=== PATIENT | male | born 1955 | race Caucasian/White ===

== ENCOUNTER 2018-01-21 16:18 | Observation (INO) | payer OTHER ==
[~2018-01-21] VITALS: Ht 195.6 cm; Wt 156.3 kg
[~2018-01-21 16:18] MED LIST: ACTOS PO; COLESEVELAM; FENOFIBRATE; FUROSEMIDE20 MG PO; GLIPIZIDE10 MG PO; LOFIBRA160 MG PO; LOSARTAN POTAS100 MG PO; METFORMIN; METFORMIN HCL1000 MG PO; PIOGLITAZONE HC45 MG PO; VALSARTAN; WELCHOL625 MG PO
--- NOTE | 2018-01-21 18:19 | Diagnostic Imaging Report ---
EXAMINATION: PA and lateral views of the chest. COMPARISON: None CLINICAL HISTORY: Chest pain DISCUSSION: Lines/tubes: None. Lungs: Lingular atelectasis. Central venous congestion. Pleura: There is no pleural effusion or pneumothorax. Heart and mediastinum: Mild cardiomegaly and prominence of the mediastinum. Bones and soft tissues: No acute bony abnormalities. IMPRESSION: Mild cardiomegaly and prominence of the mediastinum. Lingular atelectasis. Signed by: Dr. Martell Pop M.D. on 01/21/2018 6:15 PM
[2018-01-21 20:25] LABS: BASOPHILS % 0.4 % (0.0-1.0); EOSINOPHILS # (AUTO) 0.1 (0.0-0.4); HEMATOCRIT 39.2 % (38.2-49.6); HEMOGLOBIN 13.2 g/dL (14.0-18.0); LYMPHOCYTES # (AUTO) 1.6 (1.0-3.2); LYMPHOCYTES % 17.1 % (18.0-39.1); MEAN CORPUSCULAR HEMOGLOBIN 31.8 pg (28-32); MEAN CORPUSCULAR HGB CONC 33.7 g/dL (31-35); MEAN CORPUSCULAR VOLUME 94.5 fL (81-99); MONOCYTES # (AUTO) 0.8 (0.2-0.8); MONOCYTES % 8.3 % (4.4-11.3); NEUTROPHILS # (AUTO) 6.9 (2.1-6.9); NEUTROPHILS % 72.6 % (38.7-80.0); PLATELET COUNT 192 x10e3/uL (140-360); RED BLOOD COUNT 4.15 x10e6/uL (4.3-5.7); RED CELL DISTRIBUTION WIDTH 13.5 % (11.7-14.4)
[2018-01-21 20:39] LABS: INR 1.16; PARTIAL THROMBOPLASTIN TIME 26.2 seconds (23.8-35.5); PROTHROMBIN TIME 13.9 seconds (11.9-14.5)
[2018-01-21 20:46] LABS: ALBUMIN 3.8 g/dL (3.5-5.0); ALBUMIN/GLOBULIN RATIO 1.2 (0.8-2.0); ANION GAP 12.9 mmol/L (8-16); CALCIUM 9.5 mg/dL (8.4-10.2); CREATININE, SERUM 1.21 mg/dL (0.72-1.25); POTASSIUM 3.9 mmol/L (3.5-5.1)
[2018-01-21 20:52] LABS: CREATINE KINASE MB 4.2 ng/mL (0-5.0)
[2018-01-21 21:15] LABS: BILIRUBIN,URINE NEGATIVE (NEGATIVE); CLARITY,URINE CLEAR (CLEAR); COLOR,URINE YELLOW (YELLOW); KETONES,URINE NEGATIVE (NEGATIVE); LEUKOCYTE ESTERASE ,URINE NEGATIVE (NEGATIVE); NITRITE,URINE NEGATIVE (NEGATIVE); PROTEIN,URINE DIPSTICK NEGATIVE (NEGATIVE); URINE UROBILINOGEN 0.2 mg/dL (0.2 - 1)
[2018-01-21 21:30] LABS: EPITHELIAL CELLS,URINE FEW /LPF; MUCUS,URINE FEW (RARE)
[2018-01-21] MEDS ORDERED: ONDANSETRON HCL INJ 2 MG/ML VIAL IV PRN (22:00)
[2018-01-21] MEDS ORDERED: DEXTROSE 50% SYRINGE 50 ML IV PRN (22:00)
[2018-01-21] MEDS ORDERED: SODIUM CHLORIDE FLUSH 10 ML SYR INJ PRN (22:00)
[2018-01-21] MEDS ORDERED: MORPHINE SULFATE 2 MG/ML SYR IV PRN (22:00)
[2018-01-21] MEDS: FAMOTIDINE 20 MG/2 ML VIAL IV SCH (22:30)
[2018-01-22 03:55] LABS: CHOL/HDL RATIO 3.8 (3.9-4.7)
[2018-01-22 04:06] LABS: CREATINE KINASE MB 2.9 ng/mL (0-5.0)
[2018-01-22] MEDS: INSULIN REGULAR, HUMAN 100 UNIT/1 ML 3ML VIAL SQ SCH ×4 (08:00→21:00)
[2018-01-22] MEDS: ASPIRIN 81 MG ENTERIC COATED PO SCH (09:35)
[2018-01-22 10:32] LABS: AMYLASE 44 U/L (25-125); LIPASE 38 U/L (8-78)
[2018-01-22] MEDS: FAMOTIDINE 20 MG/2 ML VIAL IV SCH ×2 (10:50→21:23)
[2018-01-22 10:56] VITALS: BP 144/70
[2018-01-22 11:14] VITALS: BP 144/70
--- NOTE | 2018-01-22 11:20 | History and Physical ---
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 This patient has no previous history of indigestion and no previous chest pains. He does however have right bundle branch block and left anterior hemiblock. In the past, he was thought to have possible sleep apnea because he is obese. He drives the truck. 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 Finally at 2 p.m., he got off work, bought the above-mentioned food and ate it. Two hours later, he developed indigestional chest pain in the lower sternal region. He came to the emergency room. EKG still showed right bundle branch block and left anterior hemiblock. Chest x-ray showed possible cardiomegaly. He is being admitted for further evaluation and treatment. CT scan not done. PAST MEDICAL HISTORY: Remarkable for diabetes and hyperlipidemia. MEDICATIONS: Include 1. Losartan 100 mg p.o. q.d. 2. Welchol 625 mg 3 tablets p.o. b.i.d. 3. Metformin 500 mg p.o. b.i.d. 4. Glipizide 10 mg p.o. q.d. 5. Pioglitazone 45 mg p.o. q.d. 6. Lasix 20 mg p.o. q.d. 7. Fenofibrate 160 mg p.o. q.d. 8. Lisinopril 5 mg q.d. 9. Amlodipine 10 mg p.o. q.d. for his history of hypertension. PAST SURGICAL HISTORY: Included tonsillectomy, back surgery, age 24, causing him not to be able to walk on an incline, history of arthroscopic left knee surgery x2. FAMILY HISTORY: Father from pneumonia, had a pacemaker and myocardial fraction age 65. Mother had congestive heart failure and diabetes. Brother had congestive heart failure with bypass surgery. PERSONAL AND SOCIAL HISTORY: He is a cigarette smoker. ALLERGIES: NONE KNOWN. REVIEW OF SYSTEMS: Noncontributory. He does have slightly elevated creatinine at 1.3 in the past. PHYSICAL EXAMINATION GENERAL: He is obese, alert, and coherent. VITAL SIGNS: Stable. CARDIAC: Jugular veins are not distended. S1 and S2 are regular. There is no appreciable murmur. LUNGS: Clear. ABDOMEN: Soft. Bowel sounds are present. EXTREMITIES: Show no cyanosis, clubbing or edema. LABORATORY STUDIES: Electrolytes showed sodium 134, potassium 3.9, BUN 14, and creatinine 1.2. GFR 60. White count 9400, hemoglobin is 13.2, and platelet count 191,000. INR is 1.16. Chest x-ray as mentioned. INR was normal. IMPRESSION 1. Atypical lower chest and upper abdominal pains. Consider GI pathology as well as coronary artery disease. 2. Right bundle branch block and left anterior hemiblock, chronic. 3. History of dilated aortic root measuring 4.2 cm. 4. Hypertension. 5. Diabetes. 6. Hyperlipidemia. 7. Possible sleep apnea. 8. Family history of coronary artery disease. 9. Cigarette smoking. 10. Chronic kidney disease stage 2. Creatinine 1.2. GFR 60. RECOMMENDATIONS: CT scan of the chest with contrast. Intravenous fluids to prevent deterioration of renal function. Lexiscan nuclear stress test since the patient feel he cannot walk on an incline even though he does walk 2 miles per day at home without chest pains. CT of the abdomen and consider ultrasound of gallbladder. Thank you very much. Job#: [id number] DEMI cc:DR. PADMA HUBBARD
[2018-01-22 11:24] VITALS: BP 132/74
[2018-01-22] MEDS: SODIUM CHLORIDE 0.9% 1000ML 1,000 ML IV SCH (11:44)
[2018-01-22 12:25] LABS: CREATINE KINASE MB 2.5 ng/mL (0-5.0)
[2018-01-22 15:09] VITALS: BP 124/56
[2018-01-22] MEDS ORDERED: SODIUM CHLORIDE 0.9% 50ML 50 ML ONE (15:31)
[2018-01-22] MEDS ORDERED: IOPAMIDOL 370 MG/ML 200 ML INFUS..BTL INJ ONE (15:32)
[2018-01-22] MEDS: COLESEVELAM HCL 625 MG TAB PO SCH (16:42)
--- NOTE | 2018-01-22 16:49 | Diagnostic Imaging Report ---
EXAMINATION: CT scan of the chest with contrast. TECHNIQUE: Spiral CT images of the chest were performed from the lung apices to the level of the adrenal glands after the intravenous administration of 100 cc of Isovue 370. Coronal and sagittal reformatted images were obtained. COMPARISON: None. CLINICAL HISTORY:Chest pain, history of aneurysm DISCUSSION: LINES/TUBES: None. LUNGS AND AIRWAYS: Linear atelectasis in the lingula secondary to eventration of the left hemidiaphragm. No consolidation or masses. The airways are clear, without endobronchial lesions. PLEURA: No pneumothorax or pleural effusions. HEART AND MEDIASTINUM: The thyroid gland is normal. Heart size is normal. No pericardial effusion. Aorta is nonaneurysmal. Pulmonary artery is normal in caliber. LYMPH NODES: There is no mediastinal, hilar or axillary lymphadenopathy. ABDOMEN: Please see CT abdomen and pelvis performed on same day for further detail. BONES AND SOFT TISSUES: No acute bony abnormalities. IMPRESSION: 1. Focal atelectasis in the lingula secondary to eventration of the left hemidiaphragm. No consolidation. 2. No aneurysm is identified. Signed by: Dr. Igor Cotto M.D. on 01/22/2018 4:46 PM
--- NOTE | 2018-01-22 16:58 | Diagnostic Imaging Report ---
EXAMINATION: CT of the abdomen with contrast. TECHNIQUE: Spiral CT images of the abdomen were performed from the lung bases to the iliac crests after the intravenous administration of 100 cc of Isovue 370 and the oral administration of water. Coronal and sagittal reformatted images were obtained. COMPARISON: None. CLINICAL HISTORY:Abdominal pain DISCUSSION: ABDOMEN LOWER THORAX:Please see chest CT performed same date for further patella. HEPATOBILIARY: No focal hepatic lesions. No intra or extrahepatic biliary ductal dilation. GALLBLADDER: 2 mm stone in the gallbladder neck (series 2, image 60). 2 mm calcification in the nondependent portion of the gallbladder fundus, which may represent an adherent stone. No wall thickening or pericholecystic fluid. SPLEEN: No splenomegaly. PANCREAS: No focal masses or ductal dilatation. ADRENALS: No adrenal nodules. KIDNEYS/URETERS: 2 mm nonobstructing calculus in the right superior pole (series 2, image 66). 2-3 mm nonobstructing calculus in the superior to mid right kidney (series 2, image 67) disease. 4 mm nonobstructing calculus in the right interpolar region (series 2, image 70). 2-3 mm nonobstructing calculus in the right interpolar region (series 2, image 74). Punctate nonobstructing calculus in the right inferior pole (series 2, image 78). Punctate nonobstructing calculus in the left interpolar region (series 2, image 74). No ureteral calculi, hydronephrosis or obstruction. 2.9 cm and 2.7 cm simple cysts in the interpolar left kidney (series 2, image 74). 3.2 cm exophytic simple cyst in the left inferior pole (series 2, image 83). 2.0 cm simple cyst in the right interpolar region (series 2, and 74). Bilateral subcentimeter hypodense lesions, which are too small to characterize. No solid enhancing masses. PERITONEUM/RETROPERITONEUM: No free air or fluid. LYMPH NODES: No intra-abdominal or retroperitoneal adenopathy. VESSELS: The celiac trunk,superior and inferior mesenteric and bilateral renal arteries are patent The portal, superior mesenteric and splenic veins are patent. Aorta is nonaneurysmal. GI TRACT: Visualized bowel shows no dilation or obstruction. BONES AND SOFT TISSUE: Multilevel degenerative disc changes in the lower thoracic and lumbar spine. No aggressive lytic lesions. No soft tissue abnormalities. IMPRESSION: 1. No acute abdominal or pelvic abnormalities. 2. No evidence of aortic aneurysm 3. Bilateral nonobstructing calculi, as described. No hydronephrosis. 4. Bilateral simple appearing renal cysts. 5. Cholelithiasis, without CT evidence of cholecystitis. Signed by: Dr. Igor Cotto M.D. on 01/22/2018 4:55 PM
--- NOTE | 2018-01-22 17:03 | Diagnostic Imaging Report ---
EXAM: Right Upper Quadrant Ultrasound INDICATION: \S\indigestion post meal COMPARISON: None. TECHNIQUE: Transverse and longitudinal images of the right upper abdomen were obtained. FINDINGS: Exam limited by patient's large body habitus. Liver: Size: 19.4 cm in the right midclavicular line, enlarged Appearance: Increased echogenicity, smooth contour Mass: No focal masses Gallbladder: Stones/Sludge: 2 echogenic foci measuring 0.7 x 0.5 x 0.8 cm and 1.0 x 0.7 x 0.8 cm are noted in the gallbladder wall, with minimal shadowing (these correspond to calcified foci in recent CT) Wall: 0.4 cm Appearance: No pericholecystic fluid or hydrops. Sonographic Huffman's Sign: Negative Bile Ducts: Intrahepatic Ducts: No dilatation Extrahepatic Ducts: Common bile duct measures 0.8 cm, mild dilation Pancreas: Obscured by overlying bowel gas. Kidneys: Length: Right 14.9 cm Echogenicity: Normal Collecting System: No hydronephrosis Stone: None Cyst/Mass: None Vessels: Aorta: Visualized portions are normal Inferior Vena Cava: Visualized portions are normal Main Portal Vein: 1.7 cm, normal size with hepatopedal flow. Free Fluid: No ascites or pleural effusion IMPRESSION: 1. Echogenic foci in the gallbladder wall may represent adherent stones, and less likely calcified polyps. No sonographic evidence of acute cholecystitis. 2. Mild dilation of the common bile duct, without intraluminal filling defects. 3. Hepatomegaly with diffuse fatty infiltration. No focal lesions. 4. Main portal vein is dilated. Although this may be seen with portal hypertension, the patient does not have cirrhotic features. The staff physician below has personally reviewed this exam on the date of dictation. Signed by: Dr. Igor Cotto M.D. on 01/22/2018 5:00 PM
[2018-01-22 20:15] VITALS: BP 137/83
[2018-01-22 21:05] LABS: CREATINE KINASE MB 2.6 ng/mL (0-5.0)
[2018-01-22 21:26] VITALS: BP 137/83
[2018-01-23 01:15] VITALS: BP 119/58
[2018-01-23 04:50] VITALS: BP 125/60
[2018-01-23 05:32] LABS: ALANINE AMINOTRANSFERASE 23 IU/L (0-55); ALBUMIN 3.7 g/dL (3.5-5.0); ALBUMIN/GLOBULIN RATIO 1.2 (0.8-2.0); ALKALINE PHOSPHATASE 43 IU/L (40-150); ANION GAP 14.1 mmol/L (8-16); BLOOD UREA NITROGEN 16 mg/dL (7-26); BUN/CREATININE RATIO 14 (6-25); CALCIUM 9.9 mg/dL (8.4-10.2); CARBON DIOXIDE 22 mmol/L (22-29); CHLORIDE 106 mmol/L (98-107); CREATININE, SERUM 1.17 mg/dL (0.72-1.25); EST GLOMERULAR FILTRATION RATE > 60 ML/MIN (60-); GLUCOSE 146 mg/dL (74-118); POTASSIUM 4.1 mmol/L (3.5-5.1); SODIUM 138 mmol/L (136-145)
[2018-01-23] MEDS: SODIUM CHLORIDE 0.9% 1000ML 1,000 ML IV SCH (06:11)
[2018-01-23] MEDS: INSULIN REGULAR, HUMAN 100 UNIT/1 ML 3ML VIAL SQ SCH (07:30)
[2018-01-23] MEDS ORDERED: GLIPIZIDE 5 MG TAB PO SCH (07:30)
[2018-01-23 08:00] VITALS: BP 129/69
[2018-01-23] MEDS ORDERED: METFORMIN HCL 500 MG TAB CR PO SCH (08:00)
[2018-01-23] MEDS ORDERED: REGADENOSON 0.4 MG/5 ML SYR IV ONE (08:40)
[2018-01-23] MEDS ORDERED: LOSARTAN POTASSIUM 100 MG TAB PO SCH (09:00)
[2018-01-23] MEDS ORDERED: FUROSEMIDE 20 MG TAB PO SCH (09:00)
[2018-01-23] MEDS ORDERED: NON-FORMULARY MEDICATION (Glipizide 10 MG) PO SCH (09:00)
[2018-01-23] MEDS ORDERED: AMLODIPINE BESYLATE 10 MG TAB PO SCH (09:00)
[2018-01-23] MEDS ORDERED: FENOFIBRATE 160 MG PO SCH (09:00)
[2018-01-23] MEDS ORDERED: PIOGLITAZONE HCL 45 MG TAB PO SCH (09:00)
[2018-01-23] MEDS ORDERED: NON-FORMULARY MEDICATION (Metformin Hcl 1,000 MG) PO SCH (09:00)
[2018-01-23] MEDS ORDERED: FENOFIBRATE 145 MG TAB PO SCH (09:00)
[2018-01-23 10:01] VITALS: BP 129/69
[2018-01-23] MEDS ORDERED: ASPIRIN EC81 MG PO (10:37)
[2018-01-23] MEDS ORDERED: NORVASC10 MG PO (10:37)
[2018-01-23] MEDS: COLESEVELAM HCL 625 MG TAB PO SCH (11:25)
[2018-01-23] MEDS: ASPIRIN 81 MG ENTERIC COATED PO SCH (11:25)
[2018-01-23] MEDS: FAMOTIDINE 20 MG/2 ML VIAL IV SCH (11:26)
[2018-01-23] MEDS ORDERED: ISOSORBIDE MONO30 MG PO (11:37)
[2018-01-23 12:00] VITALS: BP 151/69
--- NOTE | 2018-01-23 12:55 | Cardiology Report ---
DATE OF STUDY: January 23, 2018 LEXISCAN NUCLEAR STRESS TEST CLINICAL HISTORY AND INDICATIONS: A 62-year-old white man with multiple risk factors including smoking, family history, diabetes, hypertension, hyperlipidemia, obesity. His EKG showed right bundle-branch block and left anterior hemiblock. He has back pains and cannot walk on a treadmill. Lexiscan nuclear stress was therefore recommended. PROCEDURE: Following Lexiscan injection, the patient did not have any chest pain but he had slight throat discomfort. Perfusion images showed large inferior defect with slight improvement on the rest images. EKG still shows right bundle-branch block. CONCLUSIONS 1. Abnormal electrocardiographic stress test with large inferior defect somewhat improved on the rest images suggestive of ischemia and possible underlying myocardial scar. 2. Tissue attenuation is possible but felt to be less likely. 3. Inconclusive electrocardiographic stress test due to right bundle-branch block. 4. No chest pains, but the patient had slight throat discomfort with the Lexiscan. 5. Slight fall in blood pressure with Lexiscan. 6. No significant arrhythmias with Lexiscan. RECOMMENDATION: Cardiac catheterization. Job#: [id number] cc:PADMA HUBBARD DO
--- NOTE | 2018-01-23 14:15 | Discharge Summary ---
CLINICAL HISTORY: This is a 62-year-old white man with history of dilated aortic root by echocardiogram in November 2016 measuring 4.2 cm. He presented to the emergency room with lower sternal chest pains lasting for 2 hours after eating 2 egg rolls and drinking 12 ounces of cranberry juice. He has several risk factors of coronary artery disease including hypertension, hyperlipidemia, diabetes, obesity, family history. He is a cigarette smoker as well. His enzymes were negative. He underwent a nuclear stress test which was abnormal showing a large inferior defect with some improvement at rest. Since he is a large individual, there is still possibility of falsely abnormal stress test. He has baseline right bundle-branch block and left anterior hemiblock. CT scan of the chest was unrevealing for aneurysm. The CT of the abdomen showed cholelithiasis and nephrolithiasis without evidence of obstruction or cholecystitis. Bile ducts are a little bit enlarged, so is the portal vein. However, there is no evidence of cirrhosis by CT scan. We recommended cardiac catheterization. The patient was reluctant and wanted to go home since the grandson who was named after him has a baseball game. Risk of having a myocardial infarction was explained and understood. DISCHARGE DIAGNOSES 1. Atypical lower chest pains and upper abdominal pains possibly representing unstable angina pectoris with nuclear stress as abnormal showing a large inferior defect with slight improvement at rest. The patient has multiple risk factors. 2. Cigarette smoking. 3. Right bundle-branch block and left anterior hemiblock. 4. Diabetes. 5. Hypertension. 6. Hyperlipidemia. 7. Obesity. 8. Possible obstructive sleep apnea. 9. Family history of coronary artery disease. 10. Chronic kidney disease, stage 2. Creatinine in the past was up to 1.3. During this hospitalization, it was only 1.17 with GFR greater than 60. LISA BURKETT MD Job#: [id number] cc:PADMA HUBBARD DO
== END 2018-01-23 12:15 | disposition home or self-care (01) ==
LOC: ER 16:18 → ERHOLD 22:00 → IMCU 01-22 09:50
PROVIDERS: ADMIT Internal Medicine Cardiovascular Disease; ATTEND Internal Medicine Cardiovascular Disease
DX: R07.89 Other chest pain (principal); I45.19 Other right bundle-branch block; E78.5 Hyperlipidemia, unspecified; E11.22 Type 2 diabetes mellitus with diabetic chronic kidney disease; I12.9 Hypertensive chronic kidney disease with stage 1 through stage 4 chronic kidney disease, or unspecified chronic kidney disease; N18.2 Chronic kidney disease, stage 2 (mild); F17.210 Nicotine dependence, cigarettes, uncomplicated; Z82.49 Family history of ischemic heart disease and other diseases of the circulatory system; I77.819 Aortic ectasia, unspecified site; Z83.3 Family history of diabetes mellitus; E66.9 Obesity, unspecified; Z68.38 Body mass index [BMI] 38.0-38.9, adult; N20.0 Calculus of kidney
CPT/HCPCS: 36415 ×3; 71046; 71260; 74160; 76705; 78452; 80053 ×2; 80061; 81001; 82150; 82550 ×2; 82553 ×2; 82948 ×3; 83690; 83880; 84484 ×2; 85025; 85610; 85730; 93005; 93017; 99284; A9502; G0378 ×3; J7030 ×2; Q9967

== ENCOUNTER → 2021-04-25 | Day surgery (SDC) | payer MEDICARE, OTHER ==
[2021-04-24 08:31] LABS: BASOPHILS % 0.4 % (0.0-1.0); EOSINOPHILS # (AUTO) 0.1 (0.0-0.4); EOSINOPHILS % 0.9 % (0.0-6.0); HEMATOCRIT 44.4 % (38.2-49.6); HEMOGLOBIN 14.2 g/dL (14.0-18.0); LYMPHOCYTES # (AUTO) 1.5 (1.0-3.2); MEAN CORPUSCULAR HEMOGLOBIN 30.3 pg (28-32); MEAN CORPUSCULAR VOLUME 94.7 fL (81-99); MONOCYTES # (AUTO) 0.6 (0.2-0.8); MONOCYTES % 8.8 % (4.4-11.3); NEUTROPHILS # (AUTO) 4.7 (2.1-6.9); NEUTROPHILS % 67.6 % (38.7-80.0); PLATELET COUNT 224 x10e3/uL (140-360); RED BLOOD COUNT 4.69 x10e6/uL (4.3-5.7); RED CELL DISTRIBUTION WIDTH 13.7 % (11.7-14.4)
[~2021-04-25] MED LIST changes: +AMLODIPINE BESY10 MG PO; +ASPIRIN EC81 MG PO; +GLUCAGON FOR INJ 1 MG VIAL ONE; +HYOSCYAMINE SULFATE 0.5 MG/ML INJ ONE; +ISOSORBIDE MONO30 MG PO; +LISINOPRIL10 MG PO; +MIDAZOLAM HCL 2 MG/2 ML VIAL ONE; +NORVASC10 MG PO; +PROPOFOL IV EMULSION 10 MG/ML 20 ML VIAL ONE
[2021-04-25 11:05] VITALS: BP 157/93
== END | disposition home or self-care (01) ==
LOC: OR 07:24
PROVIDERS: ATTEND Internal Medicine Gastroenterology
DX: Z12.11 Encounter for screening for malignant neoplasm of colon (principal); K63.5 Polyp of colon; K64.8 Other hemorrhoids; E11.9 Type 2 diabetes mellitus without complications; I10 Essential (primary) hypertension; E66.9 Obesity, unspecified; Z86.010 Personal history of colon polyps; Z01.812 Encounter for preprocedural laboratory examination; Z20.822 Contact with and (suspected) exposure to COVID-19
CPT/HCPCS: 36415 ×2; 45380; 45384; 82948; 85025; 88305; J1610; J1980; J2250; J2704; U0002; 45378; 45385

== ENCOUNTER → 2024-12-22 | Day surgery (SDC) | payer MEDICARE ==
[2024-12-21 09:45] LABS: BASOPHILS % 0.4 % (0.0-1.0); EOSINOPHILS % 1.0 % (0.0-6.0); LYMPHOCYTES % 20.6 % (18.0-39.1); MONOCYTES % 8.8 % (4.4-11.3); NEUTROPHILS % 68.8 % (38.7-80.0); RED CELL DISTRIBUTION WIDTH 12.8 % (11.7-14.4)
[~2024-12-22] MED LIST changes: +FENTANYL CITRATE/PF 100MCG/2 ML INJ ONE; -GLUCAGON FOR INJ 1 MG VIAL ONE; +LIDOCAINE HCL 2% LOCAL INJ 5 ML SDV VIAL INJ ONE; -MIDAZOLAM HCL 2 MG/2 ML VIAL ONE; +ONDANSETRON HCL INJ 2MG/ML 2ML 2 MG/ML VIAL ONE; -PROPOFOL IV EMULSION 10 MG/ML 20 ML VIAL ONE; +PROPOFOL IV EMULSION 50 ML IV ONE
[2024-12-22] MEDS: LACTATED RINGER'S 1,000 ML ONE (11:30)
[2024-12-22 14:14] VITALS: TEMP 97.3
[2024-12-22 14:45] VITALS: BP 144/82; PULSE 68; RESP 16; O2SAT 98
== END | disposition home or self-care (01) ==
LOC: OR 11:17
PROVIDERS: ATTEND Internal Medicine Gastroenterology
DX: Z12.11 Encounter for screening for malignant neoplasm of colon (principal); D12.0 Benign neoplasm of cecum; D12.2 Benign neoplasm of ascending colon; K64.8 Other hemorrhoids; E11.9 Type 2 diabetes mellitus without complications; I10 Essential (primary) hypertension; Z71.89 Other specified counseling; E78.00 Pure hypercholesterolemia, unspecified; I49.9 Cardiac arrhythmia, unspecified; F17.210 Nicotine dependence, cigarettes, uncomplicated; Z01.810 Encounter for preprocedural cardiovascular examination; Z01.812 Encounter for preprocedural laboratory examination; Z79.84 Long term (current) use of oral hypoglycemic drugs; Z79.02 Long term (current) use of antithrombotics/antiplatelets; Z79.899 Other long term (current) drug therapy; Z68.36 Body mass index [BMI] 36.0-36.9, adult; Z71.3 Dietary counseling and surveillance; Z80.0 Family history of malignant neoplasm of digestive organs
CPT/HCPCS: 36415 ×2; 45380; 45385; 82948; 85025; 88305; 93005; J1980; J2003; J2405; J2704; J3010; J7121; 45378